=== PATIENT | female | born 1955 | race Caucasian/White ===

== ENCOUNTER 2017-02-03 11:42 | Day surgery (SDC) | payer MEDICAID ==
[~2017-02-03] VITALS: Ht 157.5 cm; Wt 37.9 kg
== END 2017-02-03 15:10 | disposition home or self-care (01) ==
LOC: RAD.S 11:42 → EDSTATUS 13:00 → RAD.S 15:10
PROC: 0T25X0Z Change Drainage Device in Kidney, External Approach (ICD-10-PCS; principal; 2017-02-03)
DX: Z43.6 Encounter for attention to other artificial openings of urinary tract (principal); N20.1 Calculus of ureter; Z88.6 Allergy status to analgesic agent; Z79.891 Long term (current) use of opiate analgesic; Z79.899 Other long term (current) drug therapy

== ENCOUNTER → 2017-02-15 | Outpatient (CLI) | payer MEDICAID | END | disposition home or self-care (01) | LOC: RAD.S 10:00 | DX: Z51.11 Encounter for antineoplastic chemotherapy (principal); C53.8 Malignant neoplasm of overlapping sites of cervix uteri; I10 Essential (primary) hypertension ==

== ENCOUNTER 2017-03-31 11:36 | Day surgery (SDC) | payer MEDICAID ==
[~2017-03-31] VITALS: Ht 158.8 cm; Wt 37.8 kg
== END 2017-03-31 11:51 | disposition home or self-care (01) ==
LOC: RAD.S 11:36 → EDSTATUS 13:00
PROC: 0T25X0Z Change Drainage Device in Kidney, External Approach (ICD-10-PCS; principal; 2017-03-31)
DX: Z46.6 Encounter for fitting and adjustment of urinary device (principal); N13.1 Hydronephrosis with ureteral stricture, not elsewhere classified; Z88.5 Allergy status to narcotic agent; Z85.41 Personal history of malignant neoplasm of cervix uteri; Z98.890 Other specified postprocedural states